=== PATIENT | male | born 2000 | race Caucasian/White ===

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

== ENCOUNTER 2021-02-27 21:03 | Emergency (ER) | payer BC ==
[2021-02-27 21:21] VITALS: TEMP 98.3; BMI 28.4
[2021-02-27] MEDS ORDERED: ACETAMINOPHEN 1000 MG/100 ML VIAL (NON FORMULARY) IVPB ONE (22:36)
[2021-02-27] MEDS ORDERED: SODIUM CHLORIDE 0.9% 1000 ML INFUS.BAG IV ONE (22:36)
[2021-02-27] MEDS ORDERED: METOCLOPRAMIDE HCL INJECTION 10 MG/2 ML VIAL IVPUSH ONE (22:36)
[2021-02-27] MEDS ORDERED: ACETAMINOPHEN INJECTION 100 ML IVPB ONE (22:41)
[2021-02-27] MEDS ORDERED: METOCLOPRAMIDE HCL INJECTION 10 MG/2 ML VIAL ONE (22:41)
[2021-02-27 23:53] LABS: BASO % 0.4 % (0-2.0); EOS % 2.5 % (0-4.5); HEMATOCRIT 42.4 % (35.4-49); HEMOGLOBIN 14.7 GM/dL (11.7-16.9); LYMPH % 22.7 % (8-40); MCHC 34.8 g/dl (32.0-35.9); MEAN PLT VOLUME 7.6 fl (7.5-11.1); NEUT % 66.4 % (42.8-82.8); PLATELET COUNT 327 10^3/uL (134-434); RBC 4.61 M/mm3 (4.00-5.60); RDW 12.7 % (11.9-15.9); WHITE BLOOD COUNT 12.6 K/mm3 (4.0-10.0)
[2021-02-28 00:16] LABS: CALCIUM 9.3 mg/dL (8.5-10.1)
[2021-02-28 00:17] LABS: ALBUMIN 4.4 g/dl (3.4-5.0); BLOOD UREA NITROGEN 10.4 mg/dL (7-18)
[2021-02-28 00:20] LABS: CREATININE 0.7 mg/dL (0.55-1.3)
[2021-02-28 00:21] LABS: BILIRUBIN,TOTAL 0.5 mg/dL (0.2-1); TOT PROT 8.3 g/dl (6.4-8.2)
[2021-02-28] MEDS ORDERED: LORazepam 2 MG TABLET PO ONE (00:31)
[2021-02-28 00:46] LABS: INR 1.12 (0.83-1.09); PROTHROMBIN TIME (PATIENT) 13.7 SEC (9.7-13.0)
[2021-02-28 00:49] LABS: ACTIVATED PTT 30.3 SECONDS (25.2-36.5)
[2021-02-28] MEDS ORDERED: LORazepam 1 MG TABLET ONE (00:50)
[2021-02-28 02:12] LABS: CSF WBC 1
[2021-02-28 02:13] LABS: CSF APPEARANCE CLEAR; CSF COLOR COLORLESS
[2021-02-28 02:44] LABS: BF GLUCOSE (CSF ONLY) 62 mg/dL (40-70)
[2021-02-28 03:13] VITALS: BP 115/86; PULSE 73
== END 2021-02-28 03:13 | disposition home or self-care (01) ==
LOC: JER 21:03
PROC: 009Y3ZX Drainage of Lumbar Spinal Cord, Percutaneous Approach, Diagnostic (ICD-10-PCS; principal; 2021-02-27)
PROC: 3E0333Z Introduction of Anti-inflammatory into Peripheral Vein, Percutaneous Approach (ICD-10-PCS; 2021-02-27)
PROC: 3E033GC Introduction of Other Therapeutic Substance into Peripheral Vein, Percutaneous Approach (ICD-10-PCS; 2021-02-27)
DX: R51.9 Headache, unspecified (principal)
CPT/HCPCS: 36415; 70450-TC; 80053; 82945; 84157; 85025; 85610; 85730; 99284-25; J0131

== ENCOUNTER 2021-03-02 12:59 | Observation (INO) | payer BC ==
[2021-03-02] MEDS ORDERED: METOCLOPRAMIDE HCL INJECTION 10 MG/2 ML VIAL IVPUSH ONE (13:45)
[2021-03-02] MEDS ORDERED: METOCLOPRAMIDE HCL INJECTION 10 MG/2 ML VIAL ONE (13:55)
[2021-03-02] MEDS ORDERED: DEXAMETHASONE SOD PHOSPHATE 10 MG/1 ML VIAL IVPUSH ONE (14:28)
[2021-03-02] MEDS ORDERED: SODIUM CHLORIDE 0.9% 500 ML INFUS.BAG IV ONE (14:28)
[2021-03-02] MEDS ORDERED: DEXAMETHASONE SOD PHOSPHATE 10 MG/1 ML VIAL ONE (14:49)
[2021-03-02] MEDS ORDERED: ONDANSETRON 4 MG/2 ML VIAL IVPB PRN (17:51)
[2021-03-02] MEDS ORDERED: ACETAMINOPHEN 1000 MG/100 ML VIAL (NON FORMULARY) IVPB PRN (17:51)
[2021-03-02] MEDS: DEXTROSE 5%-NORMAL SALINE 1,000 ML IV SCH (18:12)
[2021-03-02 18:49] LABS: PH,URINE 8.5 (5.0-8.0); URINE APPEARANCE CLEAR; URINE BILIRUBIN NEGATIVE (NEGATIVE); URINE COLOR YELLOW; URINE GLUCOSE (UA) NEGATIVE (NEGATIVE); URINE KETONE 1+ (NEGATIVE); URINE LEUK ESTERASE NEGATIVE (NEGATIVE); URINE NITRITE NEGATIVE (NEGATIVE); URINE PROTEIN NEGATIVE (NEGATIVE)
[2021-03-02] MEDS ORDERED: ACETAMINOPHEN 1000 MG/100 ML VIAL (NON FORMULARY) IVPB ONE (18:55)
[2021-03-02] MEDS ORDERED: ACETAMINOPHEN INJECTION 100 ML IVPB ONE (18:58)
[2021-03-02 22:30] LABS: LIPASE 52 U/L (73-393)
[2021-03-02 22:31] LABS: AMYLASE 40 U/L (25-115)
[2021-03-03 02:13] VITALS: BMI 27.2
[2021-03-03] MEDS: DEXTROSE 5%-NORMAL SALINE 1,000 ML IV SCH (06:54)
[2021-03-03 08:51] LABS: HEMATOCRIT 39.9 % (35.4-49); HEMOGLOBIN 13.5 GM/dL (11.7-16.9); MCH 31.8 pg (25.7-33.7); MCHC 33.9 g/dl (32.0-35.9); MEAN CELL VOLUME 93.9 fl (80-96); PLATELET COUNT 281 10^3/uL (134-434); RBC 4.24 M/mm3 (4.00-5.60); WHITE BLOOD COUNT 11.3 K/mm3 (4.0-10.0)
[2021-03-03 09:09] LABS: ALBUMIN 3.9 g/dl (3.4-5.0); BLOOD UREA NITROGEN 7.3 mg/dL (7-18); CALCIUM 8.9 mg/dL (8.5-10.1); MAGNESIUM 2.1 mg/dL (1.8-2.4)
[2021-03-03 09:12] LABS: CREATININE 0.7 mg/dL (0.55-1.3)
[2021-03-03 09:14] LABS: BILIRUBIN,TOTAL 0.6 mg/dL (0.2-1); TOT PROT 7.5 g/dl (6.4-8.2)
[2021-03-03] MEDS ORDERED: PT OWN MED DRAWER 7, Y5N ONE ×2 (09:43→10:25)
[2021-03-03] MEDS ORDERED: SERTRALINE HCL 50 MG TABLET (FP) PO SCH (10:00)
[2021-03-03 11:34] VITALS: BP 129/91; PULSE 73; TEMP 98.2
== END 2021-03-03 13:42 | disposition home or self-care (01) ==
LOC: JER 12:59 → JERBED 15:34 → J6S 21:54
PROVIDERS: ADMIT Family Medicine; ATTEND Family Medicine
PROC: 3E0337Z Introduction of Electrolytic and Water Balance Substance into Peripheral Vein, Percutaneous Approach (ICD-10-PCS; principal; 2021-03-02)
PROC: 3E033GC Introduction of Other Therapeutic Substance into Peripheral Vein, Percutaneous Approach (ICD-10-PCS; 2021-03-02)
PROC: 3E033NZ Introduction of Analgesics, Hypnotics, Sedatives into Peripheral Vein, Percutaneous Approach (ICD-10-PCS; 2021-03-02)
DX: G43.909 Migraine, unspecified, not intractable, without status migrainosus (principal); R11.2 Nausea with vomiting, unspecified; F41.8 Other specified anxiety disorders; F12.10 Cannabis abuse, uncomplicated; F17.210 Nicotine dependence, cigarettes, uncomplicated; Z98.890 Other specified postprocedural states
CPT/HCPCS: 36415; 70551-TC; 74018-TC-FY; 80053; 81003; 82150; 83690; 83735; 85027; 85651; 86140; 86618; 87086; 93005; 93010; 96361; 96365; 96375; 96376; 99285-25; C9803; G0378; J0131; J1100; U0003; U0005

== ENCOUNTER 2021-03-03 14:16 | Emergency (ER) | payer BC ==
[2021-03-03 14:32] VITALS: BP 140/100; PULSE 69; TEMP 98.3; BMI 28.1
== END 2021-03-03 15:45 | disposition left against medical advice (07) ==
LOC: JER 14:16
DX: R51.9 Headache, unspecified (principal); R11.2 Nausea with vomiting, unspecified
CPT/HCPCS: 99281-25

== ENCOUNTER 2022-02-02 08:22 | Emergency (ER) | payer OTHER, BC ==
[2022-02-02 08:29] VITALS: BP 126/80; PULSE 84; TEMP 97.9
[2022-02-02] MEDS ORDERED: KETOROLAC TROMETHAMINE 30 MG/1 ML VIAL IM ONE (09:20)
[2022-02-02] MEDS ORDERED: KETOROLAC TROMETHAMINE 30 MG/1 ML VIAL ONE (09:35)
== END 2022-02-02 11:01 | disposition home or self-care (01) ==
LOC: JER 08:22 → JERFT 08:22
PROC: 3E0233Z Introduction of Anti-inflammatory into Muscle, Percutaneous Approach (ICD-10-PCS; principal; 2022-02-02)
DX: R51.9 Headache, unspecified (principal); M79.604 Pain in right leg; M79.605 Pain in left leg; V89.2XXA Person injured in unspecified motor-vehicle accident, traffic, initial encounter
CPT/HCPCS: 73590-TC-LT-FY; 73590-TC-RT-FY; 99284-25

== ENCOUNTER 2022-08-03 20:54 | Emergency (ER) | payer BC, OTHER ==
[2022-08-03 21:13] VITALS: BP 130/75; PULSE 79; RESP 20; TEMP 98.8; BMI 31.4
== END 2022-08-03 23:25 | disposition home or self-care (01) ==
LOC: JER 20:54
DX: B34.9 Viral infection, unspecified (principal)
CPT/HCPCS: 0241U-QW; 99283-25

== ENCOUNTER 2022-12-30 09:06 | Emergency (ER) | payer BC ==
[2022-12-30 09:12] VITALS: RESP 18; BMI 27.7
[2022-12-30 11:12] LABS: HEMATOCRIT 37.3 % (35.4-49); HEMOGLOBIN 13.2 GM/dL (11.7-16.9); MCH 31.6 pg (25.7-33.7); MCHC 35.5 g/dl (32.0-35.9); MEAN CELL VOLUME 89.2 fl (80-96); MEAN PLT VOLUME 7.5 fl (7.5-11.1); PLATELET COUNT 297 10^3/uL (134-434); RBC 4.18 M/mm3 (4.00-5.60); RDW 12.8 % (11.9-15.9)
[2022-12-30 11:32] LABS: POTASSIUM 3.6 mmol/L (3.5-5.1)
[2022-12-30 11:34] LABS: ALBUMIN 3.6 g/dl (3.4-5.0); BLOOD UREA NITROGEN 5.4 mg/dL (7-18); CALCIUM 9.4 mg/dL (8.5-10.1)
[2022-12-30 11:38] LABS: BILIRUBIN,DIRECT 0.3 mg/dL (0.0-0.2); CREATININE 0.7 mg/dL (0.55-1.3)
[2022-12-30 11:39] LABS: BILIRUBIN,TOTAL 0.6 mg/dL (0.2-1); TOT PROT 8.3 g/dl (6.4-8.2)
[2022-12-30 12:06] LABS: THROAT:GRP A STREP NOT DETECTED (NOTDETECTED)
[2022-12-30 13:37] VITALS: BP 115/76; PULSE 88; TEMP 99.5
[2022-12-30 14:05] LABS: EPI CELLS 18 /uL (0-25.1); HYALINE CASTS 5 /uL (0-3.1); PH,URINE 6.5 (5.0-8.0); URINE APPEARANCE CLOUDY; URINE BACTERIA 1 /uL (0-1359); URINE BILIRUBIN 1+ (NEGATIVE); URINE COLOR DK YELLOW; URINE GLUCOSE (UA) NEGATIVE (NEGATIVE); URINE KETONE 1+ (NEGATIVE); URINE LEUK ESTERASE TRACE (NEGATIVE); URINE NITRITE NEGATIVE (NEGATIVE); URINE PROTEIN 1+ (NEGATIVE); URINE RBC 25 /uL (0-23.9); URINE WBC 64 /uL (0-25.8)
[2022-12-30] MEDS ORDERED: ONDANSETRON 4 MG TABLET PO ONE ×2 (14:06→14:26)
[2022-12-30] MEDS ORDERED: ACETAMINOPHEN 500 MG TABLET (FP) PO ONE (14:07)
[2022-12-30] MEDS ORDERED: ACETAMINOPHEN 500 MG TABLET (FP) ONE (14:27)
== END 2022-12-30 15:27 | disposition home or self-care (01) ==
LOC: JERFT 09:06
DX: R50.9 Fever, unspecified (principal); R07.0 Pain in throat; H92.02 Otalgia, left ear; R11.2 Nausea with vomiting, unspecified; R19.7 Diarrhea, unspecified; B34.9 Viral infection, unspecified; Z20.822 Contact with and (suspected) exposure to COVID-19
CPT/HCPCS: 0241U-QW; 36415; 71046-TC-FY; 76705-TC; 80048; 80076; 81003; 85027; 87086; 87651; 99285-25

== ENCOUNTER 2023-07-02 13:41 | Emergency (ER) | payer BC ==
[2023-07-02 13:56] VITALS: BP 142/75; TEMP 98.4; BMI 25.0
[2023-07-02] MEDS ORDERED: SODIUM CHLORIDE FOR INHALATION 3 ML VIAL.NEB IH ONE (14:33)
[2023-07-02 17:46] VITALS: PULSE 89; RESP 19
== END 2023-07-02 18:26 | disposition home or self-care (01) ==
LOC: JER 13:41
PROC: 3E0F7GC Introduction of Other Therapeutic Substance into Respiratory Tract, Via Natural or Artificial Opening (ICD-10-PCS; principal; 2023-07-02)
DX: R06.02 Shortness of breath (principal); R42 Dizziness and giddiness; R25.1 Tremor, unspecified; J45.901 Unspecified asthma with (acute) exacerbation
CPT/HCPCS: 71046-TC-FY; 93005; 93010; 99284-25